=== PATIENT | female | born 1970 | race American Indian/Alaskan Native ===

== ENCOUNTER 2016-12-20 15:36 | Emergency (ER) | payer OTHER ==
[2016-12-20 15:51] VITALS: BP 143/85; PULSE 74; RESP 16; TEMP 98; O2SAT 98; BMI 27.6
--- NOTE | 2016-12-20 16:55 | ED PDOC ---
Arrival/HPI - General Chief Complaint: Back Pain Time Seen by Provider: 12/20/16 16:22 Historian: Patient - History of Present Illness Narrative History of Present Illness (Text): 12/20/16 18:24 46-year-old female presents today with left lower back pain. Patient states she has a history of chronic back pain and intermittently she will get a flareup. Patient states she's been taking some Motrin for pain at home with minimal relief. She denies bladder or bowel incontinence. She denies numbness weakness or tingling in the extremities. 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 Patient denies abdominal pain. No fevers or chills. Patient states she was told to get epidurals for pain relief but she has opted against it. Patient states she only comes to the emergency room when she develops her back flareups. Time/Duration: Other (3 days) Symptom Onset: Gradual Symptom Course: Unchanged Quality: Aching, Pressure, Tightness Severity Level: 6 Past Medical History - Provider Review Nursing Documentation Reviewed: Yes - Travel History Have you recently traveled outside [place] w/in the past 3 mons?: No - Past History Past History: No Previous - Infectious Disease Hx of Infectious Diseases: None - Tetanus Immunization Tetanus Immunization: Unknown - Past Medical History Past Medical History: No Previous - Musculoskeletal/Rheumatological Hx Falls: No - Gastrointestinal Hx Colitis: Yes Hx Diarrhea: Yes Hx Gastroesophageal Reflux: Yes - Psychiatric Hx Depression: No Hx Emotional Abuse: No Hx Physical Abuse: No Hx Substance Use: No - Past Surgical History Past Surgical History: Non-Contributing - Surgical History Other/Comment: hernia - Anesthesia Hx Anesthesia: Yes Hx Anesthesia Reactions: No - Suicidal Assessment Feels Threatened In Home Enviroment: No Family/Social History - Physician Review Nursing Documentation Reviewed: Yes Family/Social History: Unknown Family HX Smoking Status: Never Smoked Hx Alcohol Use: Yes Hx Substance Use: No Hx Substance Use Treatment: No Allergies/Home Meds Allergies/Adverse Reactions: Allergies No Known Allergies Allergy (Verified 01/05/15 06:20) Home Medications: Home Meds Medication Instructions Recorded Confirmed Ranitidine HCl [Zantac] 25 mg PO DAILY 12/20/16 12/20/16 Review of Systems - Review of Systems Constitutional: absent: Fatigue Respiratory: absent: SOB, Cough Cardiovascular: absent: Chest Pain, Palpitations Gastrointestinal: absent: Abdominal Pain, Vomiting Genitourinary Female: absent: Dysuria, Frequency, Hematuria, Urine Output Changes Musculoskeletal: Back Pain. absent: Arthralgias, Neck Pain Skin: absent: Rash, Pruritis Neurological: absent: Headache, Dizziness Psychiatric: absent: Anxiety, Depression, Suicidal Ideation Physical Exam Vital Signs Reviewed: Yes Vital Signs Temp Pulse Resp BP Pulse Ox 12/20/16 15:48 98.0 F 74 16 143/85 98 Temperature: Afebrile Blood Pressure: Normal Pulse: Regular Respiratory Rate: Normal Appearance: Positive for: Well-Appearing, Non-Toxic, Comfortable Pain Distress: None Mental Status: Positive for: Alert and Oriented X 3 - Systems Exam Head: Present: Atraumatic Respiratory/Chest: Present: Clear to Auscultation, Good Air Exchange. No: Respiratory Distress, Accessory Muscle Use Cardiovascular: Present: Regular Rate and Rhythm, Normal S1, S2. No: Murmurs Abdomen: No: Tenderness Back: Present: Normal Inspection, Paraspinal Tenderness (+ left sided paraspinal tenderness; no edema. ). No: CVA Tenderness, Midline Tenderness Upper Extremity: Present: Normal ROM Lower Extremity: Present: Normal ROM Neurological: Present: GCS=15 Skin: Present: Warm, Dry, Normal Color. No: Rashes Psychiatric: Present: Alert, Oriented x 3 Medical Decision Making ED Course and Treatment: 12/20/16 18:26 Patient nontoxic well-appearing in no distress with stable vital signs. Toradol, Flexeril Patient feeling better with medications ambulating with a steady gait. Muscle strength 5 out of 5 bilaterally. I advised to followup with the orthopedist within the next 2 days. Return if symptoms worsen persist or new symptoms develop Patient verbalizes understanding of discharge instructions and need for immediate followup. Impression: Back pain Motrin every 6 hours as needed for pain Flexeril one tablet every 8 hours as needed for muscle spasms: May cause drowsiness Followup with the orthopedist within the next 2 days Followup with primary care physician within the next 2 days Return if symptoms worsen persist or if new symptoms develop - Medication Orders Current Medication Orders: Discontinued Medications Cyclobenzaprine HCl (Flexeril) 10 mg PO STAT STA Stop: 12/20/16 16:23 Last Admin: 12/20/16 16:31 Dose: 10 mg Ketorolac Tromethamine (Toradol) 60 mg IM STAT STA Stop: 12/20/16 16:23 Last Admin: 12/20/16 16:31 Dose: 60 mg Disposition/Present on Arrival - Present on Arrival Any Indicators Present on Arrival: No History of DVT/PE: No History of Uncontrolled Diabetes: No Urinary Catheter: No History of Decub. Ulcer: No History Surgical Site Infection Following: None - Disposition Have Diagnosis and Disposition been Completed?: Yes Diagnosis: Back pain Disposition: HOME/ ROUTINE Disposition Time: 16:50 Patient Plan: Discharge Condition: GOOD Discharge Instructions (ExitCare): Back Pain (ED) Additional Instructions: Motrin every 6 hours as needed for pain Flexeril one tablet every 8 hours as needed for muscle spasms: May cause drowsiness Followup with the orthopedist within the next 2 days Followup with primary care physician within the next 2 days Return if symptoms worsen persist or if new symptoms develop Prescriptions: Cyclobenzaprine [Cyclobenzaprine HCl] 10 mg PO Q8 #10 tab Ibuprofen [Motrin] 600 mg PO Q6H PRN #20 tab PRN Reason: pain/fever reduction Referrals: Kavita Garcia DO [Primary Care Provider] - Follow up with primary Jose Armando Nance MD [Staff Provider] - Follow up with primary Bam Jones MD [Staff Provider] - Follow up with primary Forms: WORK NOTE
== END 2016-12-20 17:13 | disposition home or self-care (01) ==
LOC: ED 15:36
DX: M54.9 Dorsalgia, unspecified (principal)
CPT/HCPCS: 96372; 99282; J1885

== ENCOUNTER 2017-01-30 09:50 | Emergency (ER) | payer MEDICAID, OTHER ==
[2017-01-30 09:55] VITALS: BMI 28.0
[2017-01-30 10:01] VITALS: RESP 18; O2SAT 98
[2017-01-30] MEDS ORDERED: Albuterol 0.083% Inhal Sol (2.5 mg/3 mL) UD IH STA (10:29)
[2017-01-30] MEDS ORDERED: Promethazine/Cod 6.25mg-10mg/5ml Syr UD PO STA (10:29)
--- NOTE | 2017-01-30 10:30 | ED PDOC ---
Arrival/HPI - General Chief Complaint: Flu-like Symptoms Time Seen by Provider: 01/30/17 10:14 Historian: Patient - History of Present Illness Narrative History of Present Illness (Text): 01/30/17 10:41 46 yo female w/o significant PMHx come in for evaluation of bodyaches, sore throat, dry cough gradually worsen for past 4-5 days. Pt reports, cough became more persistent, (+) clear sputum associated with mild intermittent headache. Pt is [employer] employee. Otherwise, pt denies recent travel or known sick contact. high fever, severe headache, dizziness, neck pain, drooling, dysphagia, dyspnea, CP, SOB, wheezing, abd. pain, N/V/D, UTi sx, rash. Ambulate to Ed for evaluation, not in any apparent distress. Past Medical History - Provider Review Nursing Documentation Reviewed: Yes - Travel History Have you recently traveled outside [place] w/in the past 3 mons?: No - Past History Past History: No Previous - Infectious Disease Hx of Infectious Diseases: None - Tetanus Immunization Tetanus Immunization: Unknown - Past Medical History Past Medical History: No Previous - Musculoskeletal/Rheumatological Hx Falls: No - Gastrointestinal Hx Colitis: Yes Hx Diarrhea: Yes Hx Gastroesophageal Reflux: Yes - Psychiatric Hx Substance Use: No - Past Surgical History Past Surgical History: Non-Contributing - Surgical History Other/Comment: hernia - Anesthesia Hx Anesthesia: Yes Hx Anesthesia Reactions: No Hx Malignant Hyperthermia: No - Suicidal Assessment Feels Threatened In Home Enviroment: No Family/Social History - Physician Review Nursing Documentation Reviewed: Yes Family/Social History: No Known Family HX Smoking Status: Never Smoked Hx Alcohol Use: Yes Frequency of alcohol use: Socially Hx Substance Use: No Hx Substance Use Treatment: No Allergies/Home Meds Allergies/Adverse Reactions: Allergies No Known Allergies Allergy (Verified 01/30/17 10:19) Home Medications: Home Meds Medication Instructions Recorded Confirmed Ranitidine HCl [Zantac] 25 mg PO DAILY 12/20/16 01/30/17 Review of Systems - Review of Systems Constitutional: Fatigue Eyes: Normal ENT: Sore Throat, Sinus Congestion Respiratory: Cough, Sputum. absent: SOB, Wheezing Cardiovascular: Normal. absent: Chest Pain, Palpitations Gastrointestinal: Normal. absent: Abdominal Pain, Diarrhea, Vomiting Genitourinary Female: Normal. absent: Dysuria, Frequency, Hematuria Musculoskeletal: Normal Skin: Normal. absent: Rash Neurological: Headache. absent: Dizziness Endocrine: Normal Hemo/Lymphatic: Normal Psychiatric: Normal Physical Exam Vital Signs Reviewed: Yes Vital Signs Temp Pulse Resp BP Pulse Ox 01/30/17 09:51 97.7 F 84 18 123/72 98 Temperature: Afebrile Blood Pressure: Normal Pulse: Regular Respiratory Rate: Normal Appearance: Positive for: Well-Appearing, Non-Toxic, Comfortable Pain Distress: Mild Mental Status: Positive for: Alert and Oriented X 3 - Systems Exam Head: Present: Normocephalic Conjunctiva: Present: Normal Ears: Present: NORMAL TM, Normal Canal Mouth: Present: Moist Mucous Membranes. No: Drooling Pharnyx: Present: ERYTHEMA (mild B/L). No: EXUDATE, TONSILS ENLARGED Nose (Internal): Present: Boggy Neck: Present: Trachea Midline. No: Meningeal Signs, JVD Respiratory/Chest: Present: Clear to Auscultation, Good Air Exchange. No: Respiratory Distress, Accessory Muscle Use Cardiovascular: Present: Regular Rate and Rhythm, Normal S1, S2. No: Murmurs Abdomen: Present: Normal Bowel Sounds. No: Tenderness, Distention, Peritoneal Signs, Rebound, Guarding Back: No: CVA Tenderness Upper Extremity: Present: Normal ROM Lower Extremity: Present: Normal ROM. No: Edema Neurological: Present: GCS=15, Speech Normal Skin: Present: Warm, Dry, Normal Color. No: Rashes Psychiatric: Present: Alert, Oriented x 3 Medical Decision Making ED Course and Treatment: 01/30/17 10:46 On re-eval, pt is afebrile, hemodynamicaly stable. Non-toxic. Tolerate PO well in ED. PulseOx 98% RA neck: (-) meningeal sign. ENT: mild pharyngitis. uvula midline, no edema. Lungs: CTA B/L, BS equal B/L. Abd: benign, (-) guarding, (-) rebound. BAcK; (-) CVA tenderness. CXR review and appears normal, rst (-) Pt has clinical findings c/w bronchitis, viral illness Pt advised. ref. to f/u with PMD in 2-3 days for re-eval. return if any worsening or new changes. - RAD Interpretation Radiology Orders: 01/30/17 10:28 CHEST TWO VIEWS (PA/LAT) [RAD] Stat Accession No. : [id number] Patient Name / ID : JUAN JOSE BARNEY / [id number] Exam Date : 01/30/2017 10:32:00 ( Approved ) Study Comment : Sex / Age : F / 46Y Creator : Mihai Akbar MD Dictator : Mihai Akbar MD Exercise Rider : Vocational Psychologist : Mihai Akbar MD Approver2 : Report Date : 01/30/2017 10:45:39 My Comment : HISTORY: Cough COMPARISON: No prior. TECHNIQUE: Chest PA and lateral FINDINGS: LUNGS: No active pulmonary disease. PLEURA: No significant pleural effusion identified. No pneumothorax apparent. CARDIOVASCULAR: Normal. OSSEOUS STRUCTURES: No significant abnormalities. VISUALIZED UPPER ABDOMEN: Normal. OTHER FINDINGS: None. IMPRESSION: No active disease. Production Counter: Radiologist - Medication Orders Current Medication Orders: Discontinued Medications Albuterol Sulfate (Albuterol 0.083% Inhal Verenice (2.5 Mg/3 Ml) Ud) 2.5 mg IH STAT STA Stop: 01/30/17 10:30 Last Admin: 01/30/17 10:48 Dose: 2.5 mg Ibuprofen (Motrin Tab) 600 mg PO STAT STA Stop: 01/30/17 10:31 Last Admin: 01/30/17 10:48 Dose: 600 mg Promethazine HCl/Codeine (Phenergan/Codeine Oral Syrup) 5 ml PO STAT STA Stop: 01/30/17 10:30 Last Admin: 01/30/17 10:48 Dose: 5 ml Disposition/Present on Arrival - Present on Arrival Any Indicators Present on Arrival: No History of DVT/PE: No History of Uncontrolled Diabetes: No Urinary Catheter: No History of Decub. Ulcer: No History Surgical Site Infection Following: None - Disposition Have Diagnosis and Disposition been Completed?: Yes Diagnosis: Viral illness, Laryngotracheitis, Bronchitis Disposition: HOME/ ROUTINE Disposition Time: 11:14 Patient Plan: Discharge Condition: STABLE Discharge Instructions (ExitCare): Acute Bronchitis (ED), Viral Syndrome (ED) Additional Instructions: ENCOURAGE FLUIDS SYMPTOMATIC TREATMENT, TAKE MEDICATION PRESCRIBED NEED FOLLOW UP WITH PMD IN 2-3 DAYS FOR RE-EVALUATION., RETURN TO ED IF ANY WORSENING OR NEW CHANGES. Prescriptions: Albuterol HFA [Ventolin HFA 90 mcg/actuation (8 g)] 1 puff IH Q6 #1 inhaler Ibuprofen [Motrin Tab] 600 mg PO Q6 #14 tab Promethazine/Codeine [Phenergan/Codeine Oral Syrup] 5 ml PO Q6 #90 ml Referrals: Han Pak, [Primary Care Provider] - Follow up with primary [facility] [Outside] - Follow up with primary Forms: [employer] (Yakut), WORK NOTE
--- NOTE | 2017-01-30 10:47 | RAD ---
HISTORY: Cough COMPARISON: No prior. TECHNIQUE: Chest PA and lateral FINDINGS: LUNGS: No active pulmonary disease. PLEURA: No significant pleural effusion identified. No pneumothorax apparent. CARDIOVASCULAR: Normal. OSSEOUS STRUCTURES: No significant abnormalities. VISUALIZED UPPER ABDOMEN: Normal. OTHER FINDINGS: None. IMPRESSION: No active disease.
[2017-01-30 11:37] VITALS: BP 126/68; PULSE 78
[2017-01-30 11:38] VITALS: TEMP 98.3
== END 2017-01-30 11:50 | disposition home or self-care (01) ==
LOC: ED 09:50
DX: J20.9 Acute bronchitis, unspecified (principal); J04.2 Acute laryngotracheitis; B34.9 Viral infection, unspecified

== ENCOUNTER 2018-01-22 07:14 | Emergency (ER) | payer SELFPAY ==
[2018-01-22 07:35] VITALS: BP 124/71; RESP 16; TEMP 97.2; O2SAT 99; BMI 30.9
--- NOTE | 2018-01-22 08:26 | ED PDOC ---
Arrival/HPI - General Chief Complaint: Back Pain Time Seen by Provider: 01/22/18 07:46 Historian: Patient - History of Present Illness Narrative History of Present Illness (Text): 01/22/18 08:21 A 47 year old female, whose past medical history includes chronic low back pain for 15 years, presents to the emergency department complaining of low back pain for the past few days. Patient reports she had a recent MRI which showed herniated discs. Patient was prescribed pain medications, which she does not want to take. She was also referred to pain management but states she does not want to go. Patient is scheduled for physical therapy. Patient denies any fever , chills, nausea, vomiting, abdominal pain, bowel/bladder disorder, chest pain, shortness of breath, saddle anesthesia or any other complaints. PMD: Dr. Garcia Time/Duration: Other (few days) Symptom Course: Unchanged Quality: Other Context: Home Past Medical History - Provider Review Nursing Documentation Reviewed: Yes - Past History Past History: No Previous - Infectious Disease Hx of Infectious Diseases: None - Tetanus Immunization Tetanus Immunization: Unknown - Reproductive Menopause: No - Past Medical History Past Medical History: No Previous - Musculoskeletal/Rheumatological Hx Falls: No - Gastrointestinal Hx Colitis: Yes Hx Diarrhea: Yes Hx Gastroesophageal Reflux: Yes - Psychiatric Hx Depression: No Hx Emotional Abuse: No Hx Physical Abuse: No Hx Substance Use: No - Past Surgical History Past Surgical History: Non-Contributing - Surgical History Other/Comment: hernia - Anesthesia Hx Anesthesia: Yes Hx Anesthesia Reactions: No Hx Malignant Hyperthermia: No - Suicidal Assessment Feels Threatened In Home Enviroment: No Family/Social History - Physician Review Nursing Documentation Reviewed: Yes Family/Social History: No Known Family HX Smoking Status: Never Smoked Hx Alcohol Use: Yes Hx Substance Use: No Hx Substance Use Treatment: No Allergies/Home Meds Allergies/Adverse Reactions: Allergies No Known Allergies Allergy (Verified 01/22/18 08:20) Home Medications: Home Meds Medication Instructions Recorded Confirmed Ranitidine HCl [Zantac] 25 mg PO DAILY 12/20/16 01/30/17 Review of Systems - Physician Review All systems were reviewed & negative as marked: Yes - Review of Systems Constitutional: absent: Fevers, Night Sweats Respiratory: absent: SOB Cardiovascular: absent: Chest Pain Gastrointestinal: absent: Abdominal Pain, Nausea, Vomiting Musculoskeletal: Back Pain (chronic low) Physical Exam Vital Signs Reviewed: Yes Vital Signs Temp Pulse Resp BP Pulse Ox 01/22/18 09:00 74 99 01/22/18 07:26 97.2 F L 71 16 124/71 99 Temperature: Afebrile Blood Pressure: Normal Pulse: Regular Respiratory Rate: Normal Appearance: Positive for: Well-Appearing, Non-Toxic, Comfortable Pain Distress: None Mental Status: Positive for: Alert and Oriented X 3 - Systems Exam Head: Present: Atraumatic, Normocephalic Pupils: Present: PERRL Extroacular Muscles: Present: EOMI Conjunctiva: Present: Normal Mouth: Present: Moist Mucous Membranes Neck: Present: Normal Range of Motion Respiratory/Chest: Present: Clear to Auscultation, Good Air Exchange. No: Respiratory Distress, Accessory Muscle Use Cardiovascular: Present: Regular Rate and Rhythm, Normal S1, S2. No: Murmurs Abdomen: No: Tenderness, Distention, Peritoneal Signs Back: Present: Other (Diffuse low back tenderness) Upper Extremity: Present: Normal Inspection. No: Cyanosis, Edema Lower Extremity: Present: Normal Inspection. No: Edema Neurological: Present: GCS=15, CN II-XII Intact, Speech Normal Skin: Present: Warm, Dry, Normal Color. No: Rashes Psychiatric: Present: Alert, Oriented x 3, Normal Insight, Normal Concentration Medical Decision Making ED Course and Treatment: 01/22/18 08:21 Impression: A 47 year old female with chronic back pain Differential Diagnosis included but are not limited to: Low back pain Plan: -- Toradol and Prednisone -- Reassess and disposition Progress Notes: On re-evaluation, patient feels better and is in no acute distress. I have discussed the results and plan with the patient, who expresses understanding. Patient in agreement with plan to be discharged home. Patient is stable for discharge. Patient was instructed to follow up with physician or return if symptoms worsen or new concerning symptoms arise. - Medication Orders Current Medication Orders: Discontinued Medications Ketorolac Tromethamine (Toradol) 60 mg IM STAT STA Stop: 01/22/18 07:47 Last Admin: 01/22/18 08:33 Dose: 60 mg NANCIE Pain Assessment Document 01/22/18 08:33 MR (Rec: 01/22/18 08:34 MR [id number]) Pain Reassessment Is this a pain reassessment? Yes Sleep Is patient sleeping during reassessment? No Presence of Pain Presence of Pain Yes Pain Scale Used Pain Scale Used Numeric Location Left, Right or Bilateral Bilateral Upper or Lower Lower Pain Location Body Site Back Description Description Sharp Intensity of Pain at present 10 Pain Behavior Facial Grimacing Aggravating Factors Changing Position Exercise/Activity Alleviating Factors/Management Medication Techniques Alleviating Factors Medication IM Administration Charges Document 01/22/18 08:33 MR (Rec: 01/22/18 08:34 MR [id number]) Injection Site MAR Injection Site Left Deltoid Charges for Administration # of IM Administrations 1 Prednisone (Prednisone Tab) 60 mg PO STAT ONE Stop: 01/22/18 07:47 Last Admin: 01/22/18 08:33 Dose: 60 mg - Scribe Statement The provider has reviewed the documentation as recorded by the Princeibbill Rothman Provider Scribe Attestation: All medical record entries made by the Scribe were at my direction and personally dictated by me. I have reviewed the chart and agree that the record accurately reflects my personal performance of the history, physical exam, medical decision making, and the department course for this patient. I have also personally directed, reviewed, and agree with the discharge instructions and disposition. Disposition/Present on Arrival - Present on Arrival Any Indicators Present on Arrival: No History of DVT/PE: No History of Uncontrolled Diabetes: No Urinary Catheter: No History of Decub. Ulcer: No History Surgical Site Infection Following: None - Disposition Have Diagnosis and Disposition been Completed?: Yes Diagnosis: Low back pain Disposition: HOME/ ROUTINE Disposition Time: 07:45 Condition: GOOD Discharge Instructions (ExitCare): Low Back Pain (DC), Back Stretches Standing or Seated Additional Instructions: ECTOR INGRAM, thank you for letting us take care of you today. Your provider was Bernard De La Torre DO and you were treated for LOWER BACK PAIN. The emergency medical care you received today was directed at your acute symptoms. If you were prescribed any medication, please fill it and take as directed. It may take several days for your symptoms to resolve. Return to the Emergency Department if your symptoms worsen, do not improve, or if you have any other problems. Please contact your doctor or call one of the physicians/clinics you have been referred to that are listed on the Patient Visit Information form that is included in your discharge packet. Bring any paperwork you were given at discharge with you along with any medications you are taking to your follow up visit. Our treatment cannot replace ongoing medical care by a primary care provider outside of the emergency department. Thank you for allowing the [email or web address] team to be part of your care today. Follow up with your primary care doctor and your physical therapist for re- evaluation and further management. Prescriptions: predniSONE [Prednisone] 40 mg PO DAILY #10 tab Referrals: [facility] Jai Reboubacar, [Non-Staff] - Follow up with primary Forms: [employer] (Kazakh)
[2018-01-22 09:02] VITALS: PULSE 74
== END 2018-01-22 09:00 | disposition home or self-care (01) ==
LOC: ED 07:14
DX: M54.5 Low back pain (principal)
CPT/HCPCS: 96372; 99283; J1885